=== PATIENT | male | born 1985 | race Caucasian/White ===

== ENCOUNTER 2017-06-18 14:55 | Emergency (ER) | payer MEDICAID, OTHER ==
[2017-06-18] MEDS ORDERED: Diph,Pert(Acell),Tet Vac 0.5 ML SYR IM ONE (15:13)
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
== END 2017-06-18 16:19 | disposition short-term general hospital (02) ==
LOC: ER 14:55
DX: T23.251A Burn of second degree of right palm, initial encounter (principal); T22.111A Burn of first degree of right forearm, initial encounter; T21.15XA Burn of first degree of buttock, initial encounter; X03.3XXA Fall due to controlled fire, not in building or structure, initial encounter; Y92.89 Other specified places as the place of occurrence of the external cause; I10 Essential (primary) hypertension; F17.210 Nicotine dependence, cigarettes, uncomplicated
CPT/HCPCS: 90715; 96372; 99283

== ENCOUNTER 2018-02-04 10:30 | Emergency (ER) | payer BC, OTHER ==
[2018-02-04] MEDS ORDERED: KETOROLAC 60 MG/2 ML VIAL IM STA (11:21)
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
[2018-02-04] MEDS ORDERED: NAPROXEN 250 MG TABLET PO ONE (12:08)
[2018-02-04] MEDS ORDERED: TRAMADOL HCL 50 MG TABLET PO ONE (12:08)
[2018-02-04] MEDS ORDERED: CYCLOBENZAPRINE 10MG TABLET PO ONE (12:08)
== END 2018-02-04 12:27 | disposition home or self-care (01) ==
LOC: ER 10:30
DX: S39.012A Strain of muscle, fascia and tendon of lower back, initial encounter (principal); X58.XXXA Exposure to other specified factors, initial encounter; Y92.009 Unspecified place in unspecified non-institutional (private) residence as the place of occurrence of the external cause; I10 Essential (primary) hypertension; F17.210 Nicotine dependence, cigarettes, uncomplicated
CPT/HCPCS: 96372; 99283; J1885